=== PATIENT | female | born 2005 | race Caucasian/White ===

== ENCOUNTER 2023-10-26 08:58 | Emergency (ER) | payer OTHER ==
[2023-10-26 09:04] VITALS: BP 118/77; PULSE 86; RESP 18; TEMP 97.2; BMI 22.1
== END 2023-10-26 10:05 | disposition home or self-care (01) ==
LOC: JERFT 08:58 → JER 08:58 → JERFT 10:05
DX: N64.4 Mastodynia (principal); N60.19 Diffuse cystic mastopathy of unspecified breast
CPT/HCPCS: 99282-25